=== PATIENT | male | born 1960 | race Caucasian/White ===

== ENCOUNTER 2016-09-19 04:18 | Emergency (ER) | payer MEDICARE ==
[~2016-09-19] VITALS: Ht 180.3 cm; Wt 86.4 kg
[~2016-09-19 04:18] MED LIST: FLOMAX 0.40.4 MG/CAP PO; NO HOME MEDICATIONS; PERCOCET 325 MG1 TA2 PO; ULTRAM 50MG TAB50 MG PO; ZOFRAN 4MG T4 MG/TAB PO; ZOFRAN8 MG PO
[2016-09-19 04:22] VITALS: TEMP 98.4
[2016-09-19 05:02] LABS: PH 5 (5-8); SQUAMOUS EPITHELIAL None Seen /hpf; URINE APPEARANCE Clear; URINE BACTERIA None Seen /hpf; URINE BILIRUBIN Negative (NEGATIVE); URINE BLOOD 2+ (NEGATIVE); URINE COLOR Yellow; URINE GLUCOSE Negative (NEGATIVE); URINE KETONE Negative (NEGATIVE); URINE UROBILINOGEN Negative (NEGATIVE); URINE WBC 0-2 /hpf
[2016-09-19 05:32] LABS: BASO % 0.6 % (0.0-2.0); EOS # 0.2 (0.0-0.7); EOS % 3.6 % (0-4.0); GRAN # 4.2 (1.4-6.5); HEMATOCRIT 40.8 % (42.0-52.0); HEMOGLOBIN 13.8 g/dl (13.5-18.0); LYMPH # 1.1 (1.2-3.4); LYMPH % 16.9 % (20.0-51.0); MEAN CELL VOLUME 86 fl (80.0-100.0); MEAN CORPUSCULAR HEMOGLOBIN 29 pg (27.0-31.0); MEAN CORPUSCULAR HGB CONC 34 g/dl (33.0-37.0); MEAN PLATELET VOLUME 9.6 fl (7.4-10.4); MONO # 0.8 (0.1-0.6); MONO % 12.6 % (1.7-9.3); PLATELET COUNT 252 K/mm3 (130-400); RED BLOOD COUNT 4.73 M/mm3 (4.20-5.60); REDCELL DISTRIBUTION WIDTH-CV 12.6 % (11.5-14.5); WHITE BLOOD COUNT 6.4 K/mm3 (4.8-10.8)
[2016-09-19 06:19] LABS: ALBUMIN 3.8 gm/dL (3.5-5.0); BILIRUBIN,TOTAL 0.8 mg/dL (0.0-1.0); CALCIUM 8.8 mg/dL (8.4-10.2); CREATININE, serum 1.47 mg/dL (0.66-1.25); POTASSIUM 3.9 mmol/L (3.4-5.0); TOTAL PROTEIN 7.1 gm/dL (6.4-8.2)
[2016-09-19] MEDS ORDERED: FLOMAX 0.40.4 MG/CAP PO (06:30)
[2016-09-19] MEDS ORDERED: NORCO 325 MG-51 TAB PO (06:30)
[2016-09-19] MEDS ORDERED: ZOFRAN 4MG T4 MG/TAB PO (06:30)
[2016-09-19 06:44] VITALS: BP 135/90; PULSE 80
[2016-09-20] MEDS ORDERED: NORCO 325 MG-51 TAB PO (10:19)
[2016-09-20] MEDS ORDERED: FLOMAX 0.40.4 MG/CAP PO (10:19)
[2016-09-20] MEDS ORDERED: ZOFRAN 4MG T4 MG/TAB PO (10:20)
[2016-09-20] MEDS ORDERED: PYRIDIUM200 M1 PO (18:52)
== END 2016-09-19 06:55 | disposition home or self-care (01) ==
LOC: COL.ER 04:18
PROVIDERS: Emergency Medicine
DX: N13.2 Hydronephrosis with renal and ureteral calculous obstruction (principal); Z87.442 Personal history of urinary calculi
CPT/HCPCS: J1885; J2405; J7030

== ENCOUNTER 2016-09-20 09:11 | Day surgery (SDC) | payer MEDICARE ==
[~2016-09-20] VITALS: Ht 180.3 cm; Wt 82.5 kg
[~2016-09-20 09:11] MED LIST changes: +NORCO 325 MG-51 TAB PO
[2016-09-20] MEDS ORDERED: NORCO 325 MG-51 TAB PO (10:19)
[2016-09-20] MEDS ORDERED: FLOMAX 0.40.4 MG/CAP PO (10:19)
[2016-09-20] MEDS ORDERED: ZOFRAN 4MG T4 MG/TAB PO (10:20)
[2016-09-20 10:54] VITALS: BP 137/82; PULSE 73; TEMP 98.7
[2016-09-20 18:15] VITALS: BP 133/67; PULSE 87; TEMP 99.1
[2016-09-20 18:30] VITALS: BP 134/86; PULSE 69
[2016-09-20] MEDS ORDERED: PYRIDIUM200 M1 PO (18:52)
[2016-09-20 19:03] VITALS: BP 133/78; PULSE 67
== END 2016-09-20 19:15 | disposition home or self-care (01) ==
LOC: SDCO 09:11 → SURG 18:23 → SDCO 19:15
DX: N20.1 Calculus of ureter (principal); H40.9 Unspecified glaucoma
CPT/HCPCS: OP; C1769; C1894; C2617; J0690; J1100; J1170; J1885; J2405; J2704; J3010; J7120; Q9967

== ENCOUNTER 2021-05-29 00:07 | Emergency (ER) | payer BC, MEDICARE ==
[~2021-05-29] VITALS: Ht 180.3 cm; Wt 86.4 kg
[~2021-05-29 00:07] MED LIST changes: +PYRIDIUM200 M1 PO
[2021-05-29 00:16] VITALS: BP 132/78; PULSE 86; TEMP 98
== END 2021-05-29 00:44 | disposition home or self-care (01) ==
LOC: COL.ER 00:07
DX: S00.01XA Abrasion of scalp, initial encounter (principal); S08.0XXA Avulsion of scalp, initial encounter; W25.XXXA Contact with sharp glass, initial encounter; Y93.89 Activity, other specified; Y92.039 Unspecified place in apartment as the place of occurrence of the external cause

== ENCOUNTER 2021-10-24 15:13 | Emergency (ER) | payer BC, MEDICARE ==
[~2021-10-24] VITALS: Ht 180.3 cm; Wt 77.3 kg
[2021-10-24 15:37] VITALS: TEMP 97.4
[2021-10-24 17:00] LABS: COLLECTION METHOD CLEAN CATCH
[2021-10-24 17:03] LABS: BASO % 0.5 % (0.0-2.0); EOS # 0.1 K/mm3 (0.0-0.7); EOS % 1.8 % (0.0-4.0); GRAN # 4.4 K/mm3 (1.4-6.5); GRAN % 77.6 % (42.2-75.2); HEMATOCRIT 41.8 % (42.0-52.0); LYMPH # 0.8 K/mm3 (1.2-3.4); LYMPH % 13.7 % (20.0-51.0); MEAN CELL VOLUME 88 fl (80.0-100.0); MEAN CORPUSCULAR HEMOGLOBIN 29 pg (27-31); MEAN CORPUSCULAR HGB CONC 34 g/dl (33.0-37.0); MEAN PLATELET VOLUME 9.4 fl (7.4-10.4); MONO # 0.3 K/mm3 (0.1-0.6); PLATELET COUNT 179 K/mm3 (130-400); RED BLOOD COUNT 4.76 M/mm3 (4.20-5.60); REDCELL DISTRIBUTION WIDTH-CV 12.7 % (11.5-14.5)
[2021-10-24 17:21] LABS: ALANINE AMINOTRANSFERASE 29 U/L (0-55); ALBUMIN 3.7 gm/dL (3.5-5.0); ALKALINE PHOSPHATASE 64 U/L (40-150); ANION GAP 9 mmol/L (7-16); AST,SGOT 24 U/L (5-34); BILIRUBIN,TOTAL 0.4 mg/dL (0.2-1.2); BLOOD UREA NITROGEN 12 mg/dL (8-26); CALCIUM 9.1 mg/dL (8.4-10.2); CARBON DIOXIDE 25 mmol/L (22-29); CHLORIDE 106 mmol/L (98-107); CREATININE, serum 0.91 mg/dL (0.72-1.25); GLUCOSE 114 mg/dL (70-99); PH 5.5 (5.0-8.5); POTASSIUM 3.7 mmol/L (3.5-4.5); SODIUM 140 mmol/L (136-145); TOTAL PROTEIN 6.5 gm/dL (6.2-8.1); URINE APPEARANCE Clear (CLEAR/HAZY); URINE BLOOD TRACE-INTACT (NEGATIVE); URINE COLOR Yellow (YELLOW); URINE GLUCOSE Negative (NEGATIVE); URINE KETONE Negative (NEGATIVE); URINE NITRATE Negative (NEGATIVE); URINE PROTEIN(semi-quant) Negative (NEGATIVE); URINE UROBILINOGEN 0.2 E.U/dL (0.2-1.0)
[2021-10-24 17:41] LABS: TSH w REFLEX 0.608 uIU/mL (0.350-4.940)
[2021-10-24 17:43] LABS: TROPONIN-I < 0.010 ng/mL (0.00-0.033)
[2021-10-24 17:44] LABS: MUCOUS Present (NOT PRESENT); SQUAMOUS EPITHELIAL None Seen /hpf (0-10); URINE BACTERIA None Seen /hpf (NONE SEEN)
[2021-10-24 18:45] VITALS: BP 127/83; PULSE 70
== END 2021-10-24 18:59 | disposition home or self-care (01) ==
LOC: COL.ER 15:13
PROVIDERS: Emergency Medicine
DX: T67.5XXA Heat exhaustion, unspecified, initial encounter (principal); Z20.822 Contact with and (suspected) exposure to COVID-19
CPT/HCPCS: J7120